=== PATIENT | female | born 1970 | race Caucasian/White ===

== ENCOUNTER → 2024-04-21 09:47 | Outpatient (REF) | payer BC, SELFPAY ==
[2024-04-21 12:23] LABS: % Basophils 0.8 % (0-2); % Eosinophils 1.4 % (0-6); % Immature Granulocytes 0.4 % (0-0.5); % Lymphocytes 41.2 % (20.5-51.1); % Monocytes 7.2 % (1.7-9.3); Absolute Basophils 0.1 10^3/uL (0-0.2); Absolute Eosinophils 0.1 10^3/uL (0-0.7); Absolute Lymphocytes 2.9 10^3/uL (1.2-3.4); Absolute Monocytes 0.5 10^3/uL (0.1-0.6); Absolute Neutrophils 3.5 10^3/uL (1.4-6.5); Hematocrit 39.3 % (37.0-47.0); Hemoglobin 13.2 g/dL (12.0-16.0); Mean Corp Hgb Conc. 33.6 g/dL (33.0-37.0); Mean Corpuscular Hgb 30.5 pg (27.0-31.0); Mean Corpuscular Volume 90.8 fL (81.0-99.0); Mean Platelet Volume 10.8 fL (7.4-10.4); Nucleated Red Blood Cells % 0 %; Platelet Count 372 10^3/uL (130-400); Red Blood Cell Count 4.33 10^6/uL (4.20-5.40); Red Cell Dist. Width 13.2 % (11.5-14.5); White Blood Cell Count 7.1 10^3/uL (4.8-10.8)
[2024-04-21 12:33] LABS: ALT (SGPT) 13 U/L (0-35); AST (SGOT) 19 U/L (14-36); Albumin 4.3 g/dl (3.5-5.0); Alkaline Phosphatase 60 U/L (38-126); Blood Urea Nitrogen 14 mg/dl (7-17); Calcium 9.5 mg/dl (8.4-10.2); Carbon Dioxide 23 mmol/L (22-30); Chloride 107 mmol/L (98-107); Glucose 109 mg/dl (70-99); HDL Cholesterol 49 mg/dl; LDL Cholesterol, Calculated 169 mg/dl; Potassium 4.1 mmol/L (3.5-5.1); Sodium 141 mmol/L (135-145); Total Bilirubin 0.6 mg/dl (0.2-1.3); Total Cholesterol 255 mg/dl (50-199); Total Protein 6.8 g/dl (6.3-8.2); Triglyceride 185 mg/dl (10-149); Very Low Density Lipoprotein 37 mg/dl (0-30); eGFR > 60.00
[2024-04-21 12:49] LABS: FSH 3.4 mIU/ml; Free T4 0.82 ng/dl (0.78-2.19); Prolactin 19.2 ng/ml (3.0-18.6)
[2024-04-21 13:04] LABS: Estradiol 49.8 pg/ml
[2024-04-21 14:06] LABS: Glycohemoglobin (HgbA1c) 5.7 % (4.0-5.6)
== END ==
LOC: HWLAB 09:47
PROVIDERS: ATTENDING PHYSICIAN Neurological Surgery; FAMILY PHYSICIAN Nurse Practitioner; REFERRING PHYSICIAN Obstetrics & Gynecology
DX: N92.5 Other specified irregular menstruation (principal); Z00.01 Encounter for general adult medical examination with abnormal findings; G43.909 Migraine, unspecified, not intractable, without status migrainosus; G44.209 Tension-type headache, unspecified, not intractable
CPT/HCPCS: 36415; 80053; 80061; 82670; 83001; 83036; 84146; 84439; 84443; 85025

== ENCOUNTER → 2024-04-28 14:20 | Outpatient (REF) | payer BC, SELFPAY | LOC: WDC 14:20 | PROVIDERS: ATTENDING PHYSICIAN Obstetrics & Gynecology; FAMILY PHYSICIAN Nurse Practitioner | DX: Z12.31 Encounter for screening mammogram for malignant neoplasm of breast (principal) | CPT/HCPCS: 77063; 77067 ==

== ENCOUNTER → 2024-05-02 09:59 | Outpatient (REF) | payer BC, SELFPAY | LOC: HWRAD 09:59 | PROVIDERS: ATTENDING PHYSICIAN Obstetrics & Gynecology; FAMILY PHYSICIAN Family Medicine | DX: N92.5 Other specified irregular menstruation (principal) | CPT/HCPCS: 76830; 76856 ==

== ENCOUNTER → 2024-08-03 13:41 | Outpatient (REF) | payer BC, SELFPAY | LOC: WDC 13:41 | PROVIDERS: ATTENDING PHYSICIAN Obstetrics & Gynecology; FAMILY PHYSICIAN Internal Medicine | DX: R92.2 Inconclusive mammogram (principal) | CPT/HCPCS: 76641 ==

== ENCOUNTER → 2024-09-01 08:24 | Outpatient (REF) | payer BC, SELFPAY ==
--- NOTE | 2024-09-01 13:34 | OID.BR.INTR ---
RIG[facility] Breast Navigator - Initial
- -
Date of Contact: 09/01/24
Met with patient. Patient given written information on navigator services available at [facility]. Will follow up as needed per protocol.
== END ==
LOC: WDC 08:24
PROVIDERS: ATTENDING PHYSICIAN Obstetrics & Gynecology; FAMILY PHYSICIAN Internal Medicine
DX: N63.41 Unspecified lump in right breast, subareolar (principal)
CPT/HCPCS: 88305; 19083; A4648

== ENCOUNTER → 2025-03-09 07:01 | Outpatient (REF) | payer BC, SELFPAY ==
[2025-03-09 10:01] LABS: Hematocrit 39.8 % (37.0-47.0); Hemoglobin 13.1 g/dL (12.0-16.0); Mean Corp Hgb Conc. 32.9 g/dL (33.0-37.0); Mean Corpuscular Volume 86.1 fL (81.0-99.0); Nucleated Red Blood Cells % 0 %; Platelet Count 358 10^3/uL (130-400); Red Cell Dist. Width 13.8 % (11.5-14.5)
[2025-03-09 10:52] LABS: ALT (SGPT) 15 U/L (0-35); AST (SGOT) 17 U/L (14-36); Albumin 4.4 g/dl (3.5-5.0); Alkaline Phosphatase 49 U/L (38-126); Blood Urea Nitrogen 16 mg/dl (7-17); Calcium 9.6 mg/dl (8.4-10.2); Carbon Dioxide 24 mmol/L (22-30); Chloride 109 mmol/L (98-107); Glucose 113 mg/dl (70-99); HDL Cholesterol 49 mg/dl; LDL Cholesterol, Calculated 160 mg/dl; Potassium 4.1 mmol/L (3.5-5.1); Sodium 141 mmol/L (135-145); Total Protein 6.9 g/dl (6.3-8.2); Very Low Density Lipoprotein 37 mg/dl (0-30); eGFR > 60.00
[2025-03-09 11:09] LABS: Glycohemoglobin (HgbA1c) 5.9 % (4.0-5.6)
== END ==
LOC: HWLAB 07:01
PROVIDERS: ATTENDING PHYSICIAN Internal Medicine
DX: E28.2 Polycystic ovarian syndrome (principal); I10 Essential (primary) hypertension; E66.9 Obesity, unspecified; E78.2 Mixed hyperlipidemia; G43.909 Migraine, unspecified, not intractable, without status migrainosus; Z91.09 Other allergy status, other than to drugs and biological substances
CPT/HCPCS: 36415; 80053; 80061; 83036; 84443; 85025; 86765

== ENCOUNTER → 2025-05-01 14:01 | Outpatient (REF) | payer BC, SELFPAY | LOC: WDC 14:01 | PROVIDERS: ATTENDING PHYSICIAN Internal Medicine | DX: Z12.31 Encounter for screening mammogram for malignant neoplasm of breast (principal) | CPT/HCPCS: 77063; 77067 ==

== ENCOUNTER → 2025-06-05 08:45 | Outpatient (REF) | payer BC, SELFPAY | LOC: WDC 08:45 | PROVIDERS: ATTENDING PHYSICIAN Obstetrics & Gynecology; FAMILY PHYSICIAN Family Medicine | DX: R92.8 Other abnormal and inconclusive findings on diagnostic imaging of breast (principal) | CPT/HCPCS: 76642 ==

== ENCOUNTER → 2025-06-26 08:33 | Outpatient (REF) | payer BC, SELFPAY ==
--- NOTE | 2025-06-26 13:27 | OID.BR.INTR ---
RIGOB[facility] Breast Navigator - Initial
- -
Date of Contact: 06/26/25
Met with patient. Patient given written information on navigator service available at [facility]. Will follow up as needed per protocol.
== END ==
LOC: WDC 08:33
PROVIDERS: ATTENDING PHYSICIAN Obstetrics & Gynecology; FAMILY PHYSICIAN Internal Medicine
DX: N63.21 Unspecified lump in the left breast, upper outer quadrant (principal)
CPT/HCPCS: 19083; 88305; A4648